=== PATIENT | male | born 1970 | race Caucasian/White ===

== ENCOUNTER 2018-01-04 23:47 | Inpatient (IN) | payer MEDICAID ==
[2018-01-05 05:34] LABS: ADD UMIC NO; UR ASCORBIC ACID NEGATIVE (NEGATIVE); UR BILIRUBIN (Dip) NEGATIVE (NEGATIVE); UR BLOOD (Dip) NEGATIVE (NEGATIVE); UR CLARITY CLEAR (CLEAR); UR COLOR YELLOW (YELLOW); UR GLUCOSE (Dip) 3+ mg/dL (NEGATIVE); UR KETONES (Dip) 1+ mg/dL (NEGATIVE); UR LEUKOCYTE ESTERASE (Dip) NEGATIVE Leu/ul (NEGATIVE); UR NITRITE (Dip) NEGATIVE (NEGATIVE); UR TOTAL PROTEIN (Dip) NEGATIVE (NEGATIVE); UR UROBILINOGEN (Dip) NEGATIVE (NEGATIVE)
[2018-01-05] MEDS: morphine 4 MG/ML VIAL IV (05:46)
[2018-01-05] MEDS: ONDANSETRON 4 MG INJ IV (05:47)
[2018-01-05] MEDS: SOD CHLORIDE 0.9% 1,000 ML IV ×2 (05:47→13:05)
[2018-01-05 05:52] LABS: ADD MAN DIFF? NO
[2018-01-05 05:57] LABS: BASOPHILS % 0.2 % (0.0-2.0); EOSINOPHILS % 0.1 % (0.0-7.0); HEMATOCRIT 42.3 % (42.0-52.0); HEMOGLOBIN 14.6 g/dl (14.0-18.0); LYMPHOCYTES # 2.5 10^3/ul (0.8-2.9); LYMPHOCYTES % 16.7 % (15.0-51.0); MEAN CORPUSCULAR HEMOGLOBIN 29.6 pg (29.0-33.0); MEAN CORPUSCULAR HGB CONC 34.5 g/dl (32.0-37.0); MEAN CORPUSCULAR VOLUME 85.8 fl (82.0-101.0); MEAN PLATELET VOLUME 11.3 fl (7.4-10.4); MONOCYTE # 1.4 10^3/ul (0.3-0.9); MONOCYTES % 9.4 % (0.0-11.0); NEUTROPHIL # 10.7 10^3/ul (1.6-7.5); NEUTROPHILS % 73.3 % (39.0-77.0); PLATELET COUNT 240 10^3/UL (140-415); RED BLOOD COUNT 4.93 10^6/ul (4.70-6.10); RED CELL DISTRIBUTION WIDTH 11.9 % (11.5-14.5)
[2018-01-05 05:57] LABS: WHITE BLOOD COUNT 14.6 10^3/ul (4.8-10.8)
[2018-01-05 06:50] LABS: ALANINE AMINOTRANSFERASE 54 IU/L (13-69); ALBUMIN 4.5 g/dl (3.3-4.9); ALBUMIN/GLOBULIN RATIO 1.25; ALKALINE PHOSPHATASE 143 IU/L (42-121); ANION GAP 16 (8-16); ASPARTATE AMINO TRANSFERASE 33 IU/L (15-46); BILIRUBIN,INDIRECT 0.5 mg/dl (0-1.1); BILIRUBIN,TOTAL 0.5 mg/dl (0.2-1.3); BLOOD UREA NITROGEN 10 mg/dl (7-20); CALCIUM 9.4 mg/dl (8.4-10.2); CARBON DIOXIDE 27 mmol/L (21-31); CHLORIDE 103 mmol/L (97-110); GLUCOSE 274 mg/dl (70-220); LIPASE 76 U/L (23-300); POTASSIUM 4.4 mmol/L (3.5-5.1); SODIUM 142 mmol/L (135-144); TOTAL PROTEIN 8.1 g/dl (6.1-8.1)
[2018-01-05 06:53] LABS: INR 0.97
[2018-01-05] MEDS: PIPER-TAZO 3.375 GM IV (PMX) 100 ML IVPB ×2 (07:13→23:45)
[2018-01-05] MEDS ORDERED: ACETAMINOPHEN 325 MG TAB PO ×3 (07:30→19:30)
[2018-01-05] MEDS ORDERED: ONDANSETRON 4 MG INJ IV ×4 (07:30→20:00)
[2018-01-05] MEDS ORDERED: NACL 0.9% 3 ML SYG IV (12:00)
[2018-01-05] MEDS ORDERED: GLUCOSE GEL 15 GRAM TUBE BUCCAL (12:00)
[2018-01-05] MEDS ORDERED: DEXTROSE 50% 50 ML SYRINGE IV ×2 (12:00)
[2018-01-05] MEDS ORDERED: HYDROCODONE/APAP (5/325) TAB PO ×3 (12:00→19:30)
[2018-01-05] MEDS ORDERED: GLUCAGON 1 MG INJ IM (12:00)
[2018-01-05] MEDS ORDERED: BISACODYL 10 MG SUPP PR (12:00)
[2018-01-05] MEDS ORDERED: GLUCOSE GEL 15 GRAM TUBE PO ×2 (12:00)
[2018-01-05] MEDS ORDERED: ACETAMINOPHEN 650 MG SUPP PR (12:00)
[2018-01-05] MEDS ORDERED: MAGNESIUM HYDROXIDE 30ML CUP PO (12:00)
[2018-01-05] MEDS ORDERED: DOCUSATE SODIUM 100 MG CAP PO (12:00)
[2018-01-05] MEDS: INSULIN ASPART [NOVOLOG] 3 ML PEN SC ×3 (13:15→21:24)
[2018-01-05] MEDS: morphine 2 MG INJ IV (16:53)
[2018-01-05] MEDS ORDERED: NEOSTIGMINE 3 MG/3 ML SYRINGE (19:01)
[2018-01-05] MEDS ORDERED: ONDANSETRON 4 MG INJ (19:01)
[2018-01-05] MEDS ORDERED: METOCLOPRAMIDE 10 MG INJ (19:01)
[2018-01-05] MEDS ORDERED: PROPOFOL 20 ML (19:01)
[2018-01-05] MEDS ORDERED: ROCURONIUM 50 MG INJ (19:01)
[2018-01-05] MEDS ORDERED: MIDAZOLAM 1 MG/ML 2 ML INJ (19:01)
[2018-01-05] MEDS ORDERED: ROPIVACAINE 0.5 % 30 ML VIAL (19:05)
[2018-01-05] MEDS ORDERED: DEXAMETHASONE 4 MG/ML 1 ML INJ (19:16)
[2018-01-05] MEDS ORDERED: CEFAZOLIN 1 GM INJ (19:21)
[2018-01-05] MEDS ORDERED: KETOROLAC 30 MG INJ (19:35)
[2018-01-05] MEDS ORDERED: DIPHENHYDRAMINE 50 MG INJ IV (20:00)
[2018-01-05] MEDS ORDERED: LABETALOL HCL 20MG INJ IV (20:00)
[2018-01-05] MEDS ORDERED: HYDROmorphONE (0.2 MG/ML) 10ML SYG IV (20:00)
[2018-01-05] MEDS ORDERED: MEPERIDINE 25 MG INJ IV (20:00)
[2018-01-05] MEDS ORDERED: FENTAnyl 50 MCG/ML VIAL (20:03)
[2018-01-05] MEDS: LIDOCAINE 1%/EPI 30 ML INJ (20:15)
[2018-01-05] MEDS: BUPIVACAINE 0.25%/EPI (SDV) 30 ML INJ (20:15)
[2018-01-05] MEDS: HYDROmorphONE (0.2 MG/ML) 10ML SYG IV ×2 (20:25→20:33)
[2018-01-05] MEDS: D5-NS + KCL 20 MEQ 1,000 ML IV (21:16)
[2018-01-06] MEDS: ACCU-CHEK XX (01:38)
[2018-01-06] MEDS: INSULIN ASPART [NOVOLOG] 3 ML PEN SC ×4 (02:23→17:43)
[2018-01-06] MEDS: PANTOPRAZOLE 40 MG INJ IV (05:26)
[2018-01-06] MEDS: D5-NS + KCL 20 MEQ 1,000 ML IV ×2 (05:27→09:57)
[2018-01-06] MEDS: PIPER-TAZO 3.375 GM IV (PMX) 100 ML IVPB ×3 (05:27→17:43)
[2018-01-06 06:18] LABS: ALANINE AMINOTRANSFERASE 41 IU/L (13-69); ALBUMIN 3.3 g/dl (3.3-4.9); ALBUMIN/GLOBULIN RATIO 1.32; ALKALINE PHOSPHATASE 109 IU/L (42-121); ANION GAP 16 (8-16); ASPARTATE AMINO TRANSFERASE 14 IU/L (15-46); BILIRUBIN,INDIRECT 0.5 mg/dl (0-1.1); BILIRUBIN,TOTAL 0.5 mg/dl (0.2-1.3); BLOOD UREA NITROGEN 11 mg/dl (7-20); CALCIUM 8.9 mg/dl (8.4-10.2); CARBON DIOXIDE 27 mmol/L (21-31); CHLORIDE 100 mmol/L (97-110); CHOL/HDL RATIO 2.3 RATIO; CHOLESTEROL 117 mg/dl (100-200); CREATININE 0.67 mg/dl (0.61-1.24); GLUCOSE 268 mg/dl (70-220); HDL CHOLESTEROL 50 mg/dl (27-67); LDL CHOLESTEROL,CALCULATED 56 mg/dl; MAGNESIUM 1.7 mg/dl (1.7-2.5); POTASSIUM 4.5 mmol/L (3.5-5.1); SODIUM 138 mmol/L (135-144); TOTAL PROTEIN 5.8 g/dl (6.1-8.1); TRIGLYCERIDES 55 mg/dl (0-149)
[2018-01-06 06:35] LABS: FREE THYROXINE INDEX (Calc) 1.93 ug/ml (0.65-3.89); T4 (THYROXINE) 4.6 ug/dl (5.5-11.0)
[2018-01-06] MEDS: ENOXAPARIN 40 MG/0.4 ML SYG SC (07:58)
[2018-01-06 08:22] LABS: HEMOGLOBIN A1C 8.9 % (0-5.9)
[2018-01-06 08:51] LABS: THYROID STIMULATING HORMONE 0.354 MIU/L (0.465-4.680)
[2018-01-06] MEDS: morphine 2 MG INJ IV ×2 (09:53→14:42)
== END 2018-01-06 20:35 | disposition home or self-care (01) | DRG 343 ==
LOC: FTE 23:47 → PP2 01-05 07:10
PROC: 0DTJ4ZZ Resection of Appendix, Percutaneous Endoscopic Approach (ICD-10-PCS; principal; 2018-01-05 19:00)
DX: K35.80 Unspecified acute appendicitis (principal); R73.9 Hyperglycemia, unspecified; D72.829 Elevated white blood cell count, unspecified
CPT/HCPCS: 36415; 71045; 74176; 80053; 80061; 81003; 82962; 83036; 83690; 83735; 84100; 84436; 84443; 84479; 85025; 85610; 85730; 88304; 93005; 96374; 96375; 99285-25